=== PATIENT | male | born 1985 | race Caucasian/White ===

== ENCOUNTER 2017-04-14 00:21 | Inpatient (IN) ==
[2017-04-14] MEDS ORDERED: 0.9 % Sodium Chloride 1,000 ML IVC ONE (00:47)
[2017-04-14] MEDS ORDERED: Dexamethasone 4 MG/ML VIAL IVP ONE (00:47)
--- NOTE | 2017-04-14 00:55 | Emergency Department Note ---
Disposition Clinical Impression: Peritonsillar abscess Disposition: Admitted As Inpatient Condition: Good Time of Disposition: 03:31 General Adult HPI - General Chief complaint: ED Dental/Oral Stated complaint: Throat swelling, post abscess drained at [facility] Time Seen by Provider: 04/14/17 00:37 Source: patient, family Limitations: no limitations Nursing Notes Reviewed: Yes Vital Signs Reviewed: Yes - History of Present Illness HPI Narrative: Mr. Francisco, a 31-year-old male, presents for evaluation of throat swelling and painful swallowing. This started Wednesday. He was seen and evaluated at [facility] emergency department Wednesday prescribed outpatient clindamycin. He was unable to elicit his symptoms progressed. He returned to [facility] Wednesday evening where he was admitted overnight and discharged Wednesday after left tonsillar abscess drainage. Initially, his symptoms were minimal however they have been progressive over the last several hours he became concerned given his now worse voice, difficulty swallowing. He has had no fevers or chills. No decrease in appetite. No nausea or vomiting. No neck pain or trismus. He has been compliant with his outpatient clindamycin. PMH: none Pain Scale: 10 - Related Data Home Medications Medication Instructions Recorded Confirmed No Known Home Drugs 04/14/17 04/14/17 Allergies Allergy/AdvReac Type Severity Reaction Status Date / Time No Known Allergies Allergy Verified 04/14/17 00:26 All systems ED: reviewed and negative except as stated. Past Medical History - Past Medical History Medical history: Reports: asthma Surgical history: Reports: other Psychiatric history: Reports: anxiety, depression - Social History Smoking Status: Current every day smoker Smokeless Tobacco Status: No Alcohol use: Reports: rarely Drug use: Reports: none Physical Exam Vital Signs Reviewed General: Patient is alert, oriented, and in no acute distress. He is speaking with a mildly hoarse voice. HEENT: No facial asymmetry. Head is normocephalic and atraumatic. Oral mucosa moist. Posterior pharynx without erythema. Left tonsillar pillar is swollen and erythematous with uvular deviation to the right. Cardiovascular: Heart regular rate and rhythm without clicks, rubs, gallops, or murmurs. No JVD. PMI nondisplaced. Respiratory: Symmetric chest rise with good respiratory effort. Bilateral breath sounds are clear without wheezing, crackles, or rhonchi. Abdomen: Bowel sounds present normoactive x-4 quadrants. Abdomen is soft, nondistended, and nontender. No organomegaly noted. Psych: Patient's affect is appropriate for situation. - General Limitations: no limitations General appearance: alert Course Course Narrative: Patient is handling secretions and oxygen well room air. He does note however that if he tilts his head backwards he feels like he is choking. As long as he does not lay supine. Stable and in control of his airway. CT neck soft tissue shows a large peritonsillar abscess measuring 4.3 x 2.5 x 2.1 cm. Radiology notes no significant airway obstruction. Patient remains febrile with stable vital signs. Lab work is unremarkable. I initially gave him empiric Rocephin as an alternative to clindamycin as well as Decadron 10 mg. Spoke with on-call ENT, Dr. Newell, who requests the following: Decadron 20 mg IV every 8 hours Clindamycin or Unasyn. Because patient was previously on clindamycin with return of his abscess, will go with Unasyn 3 g IV 4 times a day. Spoke with the admitting hospitalist, Celena Castro who agrees to accept the patient. We discussed the patient's clinical history, clinical picture, and Dr. Newell's recommendations and he has no additional questions or concerns this time. I updated the patient and his mother at bedside. They were thankful and have no additional questions or concerns this time. Vital Signs Temperature 98 F 04/14/17 00:22 Pulse Rate 84 04/14/17 00:22 Respiratory Rate 16 04/14/17 00:22 Blood Pressure 149/83 04/14/17 00:22 O2 Sat by Pulse Oximetry 97 04/14/17 00:22 Temperature 98 F 04/14/17 00:22 Pulse Rate 84 04/14/17 03:39 Respiratory Rate 16 04/14/17 03:58 Blood Pressure 147/93 04/14/17 03:58 O2 Sat by Pulse Oximetry 98 04/14/17 03:39 Oxygen Delivery Oxygen Delivery Room Air Attestation Statement - Attestation Attestation: I, Gennaro Resendez MD, personally evaluated this patient and discussed their management with the resident physician. I reviewed the resident's note and agree with the documented findings, medical decision making, and plan of care. 31-year-old male presents to the emergency department with complaint of left peritonsillar abscess. He states that his throat started getting sore last Wednesday. He was seen at [facility] on Wednesday and had a negative strep test. He returned on Wednesday because of worsening conditions and was found to have a peritonsillar abscess. He was admitted to the hospital Wednesday evening. The peritonsillar abscess was drained early Wednesday and then he was discharged later Wednesday. Patient is on clindamycin. He presents to the emergency department tonight because of increasing pain and swelling in the left side of his throat with increasing hoarseness. No difficulty breathing. No definite fever. On examination patient is a well-developed well-nourished well-appearing male in no acute distress. He is alert and oriented 3. There is no cyanosis or diaphoresis. On examination patient has some ecchymosis and erythema of the left tonsillar area with moderate asymmetric swelling on the left and mild deviation of the uvula. Neck is supple with no lymphadenopathy. Breath sounds are clear and equal bilaterally. Heart regular rate and rhythm. Abdomen soft and nontender with normal bowel sounds. CT obtained and shows left peritonsillar abscess. No significant airway compromise. Dr. Forde discussed the case with ENT, Dr. Liu, and she recommended admission by the hospitalist. The hospitalist, Dr. Dallas, was consulted and accepted the admission of the patient.
[2017-04-14] MEDS ORDERED: Dexamethasone 4 MG/ML VIAL IVP STA (03:24)
[2017-04-14] MEDS ORDERED: Ampicillin/Sulbactam 3,000 MG in 0.9 % Sodium Chloride Mini Bag 100 ML IVPB ONE (03:25)
[2017-04-14] MEDS ORDERED: *HR* Morphine 2 MG/ML SYRINGE IVP ONE (03:42)
[2017-04-14] MEDS ORDERED: Naloxone 0.4 MG/ML INJ IVP PRN (04:03)
[2017-04-14] MEDS ORDERED: Acetaminophen 325 MG TABLET PO PRN (04:03)
[2017-04-14] MEDS ORDERED: Ketorolac 15 MG/ML VIAL IVP PRN (04:03)
[2017-04-14] MEDS ORDERED: *HR* Morphine 2 MG/ML SYRINGE IVP PRN ×2 (04:05→10:35)
[2017-04-14] MEDS ORDERED: 0.9 % Sodium Chloride 1,000 ML IVC SCH (04:15)
--- NOTE | 2017-04-14 04:17 | Internal Med History&Physical ---
Date of Encounter: 04/14/17 Time of Encounter: 03:30 Assessment and Plan (1) Peritonsillar abscess Current visit: Yes Status: Acute - As seen on CT in ED showing Large left peritonsillar abscess measuring 4.3 x 2.5 x 2.1 cm without significant airway compromise - Drained on 04/13 morning at [place] per patient. Has received IV clindamycin without relief. - Afebrile, labs pending. - Start Vanc, zosyn. Decadron 10 mg q8 hours. NPO diet. Pain control - ENT consulted in ED, will see in AM. (2) DVT prophylaxis Current visit: Yes Status: Acute SCDs. Anticoagulation held for possible ENT intervention tomorrow morning. Internal Medicine - H&P: HPI Chief complaint: tooth pain Admitted From: Emergency Dept Plans for Post Hospital Care: Home History of present illness: Mr. Francisco is a 31 year old male who presents with a complaint of tooth pain for the past 5 days. No significant PMHx. He states that he woke Wednesday morning with sudden onset, aching, throbbing pain that is located in his left lower jaw with some radiation to neck and ear. He presented to [facility] on Wednesday evening where he was diagnosed with peritonsillar abscess and given clindamycin. He was unable to fill the prescription before his pain worsened significantly and he presented again to [place]. He was admitted, given IV clindamycin, and had the abscess drained with relief of symptoms. He was sent home with a prescription of PO clindamycin which he has been compliant. He states that he now is again experiencing the same pain and in addition is having difficulty swallowing. He has a hard time initiating swallow motion and experiences pain with it. He denies any fevers, chills, nausea, vomiting, chest pain. He does admit to some mild difficulty breathing when lying supine however he has no complaints when head of bed is raised. In the ED, he received IV fluids, unasyn, rocephin, 4mg morphine, and a total of 20 mg of decadron with relief of symptoms. Head and neck CT showed Large left peritonsillar abscess measuring 4.3 x 2.5 x 2.1 cm without significant airway compromise is identified. ENT was called in ED and agreed to see pt tomorrow morning. Past Med Surg Social Fam HX - Past Medical History Medical history: asthma Psychiatric history: anxiety, depression - Past Surgical History Surgical History: other - Social History Smoking Status: Current every day smoker Smokeless Tobacco Status: No Alcohol use: rarely Drug use: none Occupational status: previously employed Internal Medicine - H&P: Meds No Known Home Drugs 04/14/17 [History] 3 Allergy/AdvReac Type Severity Reaction Status Date / Time No Known Allergies Allergy Verified 04/14/17 00:26 All Systems PM: A 10-system review of systems was performed and is negative for pertinent findings except as documented above in the HPI. - Constitutional Constitutional: fatigue, no chills, no fever(s) - EENT Ears: ear pain Nose, mouth and throat: dental pain, dysphagia, mouth pain, odynophagia, no facial pain, no sore throat - Cardiovascular Cardiovascular ROS IM: no chest pain - Respiratory Respiratory: no cough, no dyspnea, no hemoptysis - Gastrointestinal Gastrointestinal: no abdominal pain, no nausea, no vomiting - Genitourinary Genitourinary ROS male: no difficulty urinating, no dysuria - Neurological Neurological ROS: no numbness, no tingling - Constitutional Vitals: Temp Pulse Resp BP Pulse Ox 98 F 84 16 147/93 98 04/14/17 00:22 04/14/17 03:39 04/14/17 03:58 04/14/17 03:58 04/14/17 03:39 General appearance: Present: cooperative, A&O X 3, no acute distress, answers questions appropriately - Head Head exam: Present: atraumatic, normocephalic - ENT ENT exam: Present: mucous membranes moist, normal external ear exam - Expanded ENT Exam Mouth exam: Present: moist, tongue normal Teeth exam: Present: gingival enlargement. Absent: dental caries, fractured tooth # - Neck Neck exam general surgery: Present: tenderness (anterior palpation of submandibular region on left), supple. Absent: lymphadenopathy - Respiratory Respiratory exam: Present: CTAB. Absent: rales, rhonchi, wheezes - Cardiovascular Cardiovascular exam: Present: RRR, +S1, +S2 - GI/Abdominal GI/Abdominal exam: Present: normal bowel sounds, soft. Absent: tenderness - Psychiatric Psychiatric exam: Present: normal affect, normal mood
--- NOTE | 2017-04-14 04:31 | Event Note ---
Date of Encounter: 04/14/17 Time of Encounter: 04:31 Patient seen and examined with medical office technologist. Agree with this assessment and plan
[2017-04-14] MEDS ORDERED: Vancomycin 1,250 MG in D5% in Water 250 ML IVPB SCH (05:00)
[2017-04-14] MEDS ORDERED: Vancomycin 1,500 MG in D5% in Water 250 ML IVPB ONE (05:00)
[2017-04-14 05:38] LABS: Basophils % 0.1 %; Eosinophils % 0.1 %; Hematocrit 40.1 % (37.5-50.1); Hemoglobin 13.7 g/dL (12.9-16.9); Immature Granulocytes % 0.5 % (0-4); Lymphocytes # 1.2 K/mcL (0.6-4.6); Lymphocytes % 8.5 %; Mean Corpuscular HGB Conc 34.2 g/dL (31.6-35.5); Mean Platelet Volume 8.9 fL (9.4-12.4); Monocytes # 0.5 K/mcL (0.0-1.3); Monocytes % 3.6 %; Neutrophils # 11.8 K/mcL (1.6-8.9); Platelet Count 286 K/mcL (140-400); Red Blood Count 4.72 M/mcL (4.19-5.50); Segmented Neutrophils % 87.2 %
[2017-04-14 05:59] LABS: BUN/Creatinine Ratio 18 (6-26); Blood Urea Nitrogen 13 mg/dL (8-26); C-Reactive Protein 49 mg/L (Less than 5); Calcium 8.9 mg/dL (8.6-10.8); Carbon Dioxide 23 mEq/L (19-29); Chloride 109 mEq/L (98-109); Glucose 126 mg/dL (70-99); Osmolality,Calculated 288 (280-300); Potassium 4.8 mEq/L (3.5-4.5); Sodium 138 mEq/L (136-145); eGFR For African Americans > 60 (> 60); eGFR For Non-African Americans > 60 (> 60)
[2017-04-14] MEDS: Piperacillin/Tazobactam 3.375 GM in D5% in Water (Mini-Bag+) 100 ML IVPB SCH ×2 (08:03→16:46)
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
--- NOTE | 2017-04-14 08:19 | ENT - Consult Note ---
Date of Encounter: 04/14/17 Time of Encounter: 08:17 Assessment and Plan (1) Airway compromise Current Visit: Yes Status: Acute Patient with narrowing of the airway secondary to recurrent peritonsillar abscess with abscess measuring over [address] scan. Patient with previous I&D 2 days ago and failed to improve on outpatient clindamycin. (2) Peritonsillar abscess Current Visit: Yes Status: Acute Patient was recurrent peritonsillar abscess. Will plan to take patient to the operating room later this morning for incision and drainage and possible tonsillectomy. Risks, benefits, alternatives of this procedure were discussed with the patient at the bedside. Risks include but not limited to dysphagia bleeding both early and late, injury to the teeth or gums, jaw or tongue pain, dehydration, possible need for further surgery. Patient understands these risks and has agreed to proceed with the surgery as outlined. OR was contacted and patient was placed on the schedule for later this AM. History of Present Illness Consult date: 04/14/17 Reason for ENT Consult: airway complication, peritonsillar abscess History of present illness: Patient is a 31-year-old male that presented to emergency room early this morning with increased throat pain. Patient with a history of recent peritonsillar abscess that was drained at another [facility] 2 days ago. Patient was placed on clindamycin by mouth on discharge after abscess was drained. Patient continued to get worse even though he took this antibiotic as prescribed and presented to the emergency department for evaluation. CT scan was obtained which showed a repeat formation of the peritonsillar abscess on the left. Patient last ate last night prior to coming to the emergency department. Patient is tolerating his secretions but is starting to have difficulty swallowing. Patient with no current shortness of breath. Past Med Surg Social Fam HX - Past Medical History Medical history: asthma Psychiatric history: anxiety, depression - Past Surgical History Surgical History: other - Social History Smoking Status: Current every day smoker Packs per day: 1/2 Smokeless Tobacco Status: No Alcohol use: none Drug use: none Medications and Allergies Clindamycin HCl 300 mg PO 04/14/17 [History] Ibuprofen [Ibuprofen] 800 mg PO Q8H PRN 04/14/17 [History] 3 Allergy/AdvReac Type Severity Reaction Status Date / Time No Known Allergies Allergy Verified 04/14/17 00:26 ENT - ROS - Constitutional Constitutional ROS: as per HPI - EENT Nose, mouth and throat: halitosis, sore throat, throat swelling - Cardiovascular Cardiovascular ROS IM: no chest pain - Respiratory no wheezing, no stridor ENT Exam Initial Vital Signs Temp Pulse Resp BP Pulse Ox 98 F 84 16 149/83 97 04/14/17 00:22 04/14/17 00:22 04/14/17 00:22 04/14/17 00:22 04/14/17 00:22 - General physical appearance well developed, well nourished, moderate distress, severe pain - Eyes PERRL, normal ocular movement - ENT normal pinna, mucosal exudate, Other (Hypertrophied tonsils with asymmetry, left tonsil 4+ right tonsil 2+ with exudate. Previous I&D site visualized at the superior pole of the left tonsil with ecchymotic soft palate at the superior pole of the tonsil., Teeth appearing good repair uvula is deviated to the right tongue is mobile and midline) - Neck no masses, trachea midline - Respiratory normal respiratory effort Exam Initial Vital Signs Temp Pulse Resp BP Pulse Ox 98 F 84 16 149/83 97 04/14/17 00:22 04/14/17 00:22 04/14/17 00:22 04/14/17 00:22 04/14/17 00:22 Results - Labs 04/14/17 05:18 04/14/17 05:18 Abnormal lab results WBC 13.5 K/mcL (4.3-11.1) H 04/14/17 05:18 MPV 8.9 fL (9.4-12.4) L 04/14/17 05:18 Neutrophils # 11.8 K/mcL (1.6-8.9) H 04/14/17 05:18 Immature Plt Fraction 1.0 % (1.1-6.1) L 04/14/17 05:18 Potassium 4.8 mEq/L (3.5-4.5) H 04/14/17 05:18 Creatinine 0.71 mg/dL (0.72-1.25) L 04/14/17 05:18 Glucose 126 mg/dL (70-99) H 04/14/17 05:18 C-Reactive Protein 49 mg/L (Less than 5) H 04/14/17 05:18 Diabetes panel 04/14/17 Range/Units 05:18 Sodium 138 (136-145) mEq/L Potassium 4.8 H (3.5-4.5) mEq/L Chloride 109 (98-109) mEq/L Carbon Dioxide 23 (19-29) mEq/L BUN 13 (8-26) mg/dL Creatinine 0.71 L (0.72-1.25) mg/dL Glucose 126 H (70-99) mg/dL Calcium 8.9 (8.6-10.8) mg/dL Calcium panel 04/14/17 Range/Units 05:18 Calcium 8.9 (8.6-10.8) mg/dL Pituitary panel 04/14/17 Range/Units 05:18 Sodium 138 (136-145) mEq/L Potassium 4.8 H (3.5-4.5) mEq/L Chloride 109 (98-109) mEq/L Carbon Dioxide 23 (19-29) mEq/L BUN 13 (8-26) mg/dL Creatinine 0.71 L (0.72-1.25) mg/dL Glucose 126 H (70-99) mg/dL Calcium 8.9 (8.6-10.8) mg/dL Adrenal panel 04/14/17 Range/Units 05:18 Sodium 138 (136-145) mEq/L Potassium 4.8 H (3.5-4.5) mEq/L Chloride 109 (98-109) mEq/L Carbon Dioxide 23 (19-29) mEq/L BUN 13 (8-26) mg/dL Creatinine 0.71 L (0.72-1.25) mg/dL Glucose 126 H (70-99) mg/dL Calcium 8.9 (8.6-10.8) mg/dL All other labs normal. Consult Discharge Plan - Plan Referrals: NONE,PCP [Primary Care Provider] -
[2017-04-14] MEDS ORDERED: Ondansetron 4 MG/2 ML VIAL ONE (10:30)
[2017-04-14] MEDS ORDERED: Dexamethasone 4 MG/ML VIAL ONE (10:30)
[2017-04-14] MEDS ORDERED: Lidocaine -MPF 2% 2 ML VIAL ONE (10:32)
[2017-04-14] MEDS ORDERED: *HR* Midazolam HCl 5 MG/5 ML VIAL IVP ONE (10:32)
[2017-04-14] MEDS ORDERED: *HR* Propofol 200 MG/20 ML VIAL IVP ONE (10:32)
[2017-04-14] MEDS ORDERED: Lidocaine -MPF 4% 5 ML AMPUL ONE (10:32)
[2017-04-14] MEDS ORDERED: *HR* FentaNYL (PF) 100 MCG/2 ML VIAL ONE ×2 (10:32)
[2017-04-14] MEDS ORDERED: *HR* HYDROmorphone (PF) 1 MG/ML SYRINGE IVP PRN (10:35)
[2017-04-14] MEDS ORDERED: Ondansetron 4 MG/2 ML VIAL IVP ONE (10:35)
[2017-04-14] MEDS ORDERED: *HR* Promethazine 25 MG/ML VIAL IVP PRN (10:35)
--- NOTE | 2017-04-14 10:43 | Operative Note ---
Date of procedure: 04/14/17 Procedure: Preoperative diagnosis: Left peritonsillar abscess Postoperative diagnosis: Same Procedure: Incision and drainage of left peritonsillar abscess Surgeon: Tianna Cruz Route Aide: N/A Anesthesia: Gen. endotracheal tube anesthesia Indications: Patient is a 31-year-old male that presented to the emergency department secondary to a recurrent peritonsillar abscess on the left side. Patient with a history of recent strep infection and he had developed an abscess on the left side that was drained 2 days prior at another [facility]. Patient was discharged on clindamycin and took the medication as prescribed but failed to improve. Pain worsened significantly in the 24 hours prior to arrival to the ED. Patient had a CT scan in the emergency department which showed a re-collection of peritonsillar abscess on the left measuring 4.3 x 2.5 x 2.1 cm. Consent:Risks benefits alternatives to tonsillectomy was discussed in detail with the patient. Risks discussed in detail including bleeding, infection, dysphagia, pain, possible need for further further surgery. Risks were understood and agreement was made to proceed with the surgery as outlined. Consent was obtained in writing. Findings: Large peritonsillar abscess on the left with fluctuance in the left superior pole of the tonsil with copious amounts of purulent drainage upon incision Blood loss: 20 mL Fluids: 0.9 normal saline Specimen: Aerobic and anaerobic cultures left peritonsillar abscess Complications: None apparent Description of procedure in detail: Patient was identified in the Pre-operative area by name and date of , consent was reviewed, and 24-hour uptake completed. Patient was brought back to the OR by the anesthesia team and placed supine on the operating room table. Patient was placed under general anesthesia and intubated using an endotracheal tube and eyes were taped. The ET tube was secured in a midline and inferior position. The bed was then rotated, a shoulder roll was placed, and the head was draped. The Caprice-Jai was then placed within the mouth retracting the tongue and ET tube inferiorly to obtain good exposure of the oropharynx and the retractor was then suspended from the chandler stand. The palate was palpated and uvula inspected and fluctuance was palpated at the left superior pole of the tonsil. Planned incision was then this area. 11 blade was then used to make a stab incision in this area. Purulence was immediately obtained. Aerobic and anaerobic cultures were taken of the purulence. Hemostat was then used to open the pocket and suction was used to help remove purulent drainage from the abscess pocket. Once pocket was completely emptied mouth was irrigated multiple times with saline. Suction cautery was used at the incision site to help cauterize and stop bleeding at the site. Airway was again irrigated and suctioned. Patient was deemed hemostatic. The Caprice-Jai retractor was removed at this time. The mouth was cleaned of debris and wiped clean. The patient was then turned over to Anesthesia in good condition.
--- NOTE | 2017-04-14 10:45 | Discharge Summary ---
Outpatient Proc Discharge Plan - Plan Additional Instructions: TONSIL SURGERY HOME CARE INSTRUCTIONS General: After tonsillectomy, you may feel tired or fatigued. Due to a lack of food or the use of pain medication, there may be constipation for several days. Physical Activities: After this surgery, you should rest at home for the first 48 hours. Activity may gradually be increased over the next 5 to 10 days. Strenuous physical activity following surgery is discouraged for two weeks. Absolutely no strenous physical activities or heavy lifting for 10 days. Diet: The more you drinks, the sooner the pain will subside. Water, fruits juice, popsicles, Jell-O, Pedialyte, and Gatorade are excellent sources of liquid. Soft foods such as ice cream, sherbet, yogurt, pudding, apple sauce and easily chewed foods should also be encouraged.. Avoid hot or spicy foods, and foods that are hard and crunchy. Often, chewing gum or gummy bears speeds comfortable eating by reducing the spasm after surgery and can be started any time after surgery. Pain: For the first several days (occasionally up to 2 weeks) following surgery , pain in the throat is to be expected. This can usually be controlled with Tylenol or prescribed pain medicine for two weeks. Pain is often worse at night and may prompt the need for additional pain medication and sleeping propped up can help. Expect pain in the ears after surgery as the same nerve that goes to the tonsil also goes to the ear and you may perceive the pain of tonsillectomy healing as coming from the ear. If a Narcotic is prescribed (Manitou/Roxicet/ Hydrocodone) do not use together with Acetaminophen (Tylenol) as the prescribed medication likely contains this medicine already. If break through pain occurs , Motrin/Ibuprofen/Advil in addition to the narcotic may be used. An ice collar can also be helpful for sore throat after surgery. Make this by placing ice cubes and water in a large Zip-Loc bag and wrapping it in a towel. Gently lay the ice pack on the front of the neck. Use numbing sore throat lozenges as needed for pain like Cepacol or Chloraseptic lozenges. Bleeding: Post-operative bleeding is unusual, but it can occur up to two weeks after surgery. Avoiding heavy exercise will decrease, but not eliminate this risk. Most bleeding is minor and you may only some blood streaked in mucous or saliva. If this happens have the child drink icy slushy liquids and/or gargle with ice chips mixed with water. If this does not stop the bleeding after 30 minutes, call our office to receive further instructions. If there is heavy bleeding begin swishing icy slushy liquids in the mouth or gargle with ice chips and immediately call our office.ng have child begin drinking icy slushy liquids or gargle with ice chips and immediately call our office. Home Medications: HYDROcodone/Acet 5/325 mg [Manitou 5-325 mg] 1 tab PO Q4-6H PRN #10 tab 04/14/17 [ Rx]
[2017-04-14] MEDS ORDERED: Dexamethasone 10 MG/ML VIAL IVP SCH ×2 (11:00)
--- NOTE | 2017-04-14 11:30 | Anesthesia Evaluation Post Op ---
Date of Encounter: 04/14/17 Time of Encounter: 11:29 - Vital Signs Vital Signs: Selected Entries 04/14/17 11:18 04/14/17 11:25 Temperature 98.1 F Pulse Rate 70 Respiratory Rate 16 Blood Pressure 125/77 O2 Sat by Pulse Oximetry 96 - Lungs Lungs: Clear Ascult./Percussion - Airway Airway: Non-obstructed - Cardiovascular Regular Rate - Mental Status Mental Status: Alert & Oriented, Answers Appropriately - Pain Pain Scale: 0 Pain Scale used: Numeric (1 - 10) - Nausea Vomiting Nausea Vomiting: Not Present - Hydration Hydration: NPO, Has not voided - Discharge PostOp Status: Discharge Patient to home
[2017-04-14 15:36] VITALS: BP 123/62
--- NOTE | 2017-04-14 17:27 | Discharge Summary ---
Date of Encounter: 04/14/17 Time of Encounter: 14:30 - Discharge Diagnosis (1) Peritonsillar abscess Priority: Primary Status: Acute Comments: Patient was recurrent peritonsillar abscess. About 5 days ago, patient awakened with sudden onset aching, throbbing pain located in left lower jaw with some radiation to neck and ear. Patient was visiting people in [place] and presented to [facility] 2 nights later where he was diagnosed with a peritonsillar abscess. He was given clindamycin Before he was able to get the prescription filled, his pain increased significantly and he went back to [facility]. He was admitted, given IV clindamycin, had I&D of peritonsillar abscess with relief of symptoms. He was sent home with a prescription to by mouth clindamycin, which he took as directed. Patient presented to the emergency room again overnight the same complaint. This visit he reported difficulty swallowing. He reported 9/10 pain with swallowing. He denies fever, chills, nausea, vomiting, chest pain. He did report some dyspnea when lying supine, however when he was at least in a semi-Ball's position he was fine. He does complain of fatigue, malaise, and body aches. in the emergency department this visit, he received IV fluids, Unasyn, Rocephin , pain medication, as well as IV steroid and had relief of symptoms. Patient had a head and neck CT showing peritonsillar abscess measuring 4.3 x 2.5 x 2.1 cm without significant airway compromise. ENT was called and he was taken to surgery for another I&D. Surgical showed large peritonsillar abscess on the left with fluctuance in the left superior pole of the tonsil with copious amounts of purulent drainage upon incision. Cultures, both aerobic and anaerobic were taken and are pending. Patient will be sent home with Bactrim and will follow up with Dr. Newell within the next week. Patient's vital signs are stable, he is afebrile, he has no airway compromise, he is able to eat and drink without difficulty, patient states he is ready to go home. I assessed vital signs myself during assessment. Blood pressure 116/73, pulse 83, respirations 16, pulse ox 96%, temperature 98.5 orally. ENT provider has given a patient prescription for pain control. Pt will be sent home with rx for Bactrim, pending culture results. (2) DVT prophylaxis Priority: Secondary Status: Acute Comments: Pt has been ambulatory. (3) Airway compromise Priority: Secondary Status: Resolved - Discharge Medications Prescriptions: HYDROcodone/Acet 5/325 mg [Bowlus 5-325 mg] 1 tab PO Q4-6H PRN #10 tab PRN Reason: Pain Sulfamethoxazole/Trimeth DS [Bactrim DS] 1 each PO BID #14 tablet Home Medications: HYDROcodone/Acet 5/325 mg [Bowlus 5-325 mg] 1 tab PO Q4-6H PRN #10 tab 04/14/17 [ Rx] Sulfamethoxazole/Trimeth DS [Bactrim DS] 1 each PO BID #14 tablet 04/14/17 [Rx] Allergies/Adverse Reactions: 3 Allergy/AdvReac Type Severity Reaction Status Date / Time No Known Allergies Allergy Verified 04/14/17 00:26 Date of admission: 04/14/17 04:31 Primary care physician: PCP NONE Discharging clinician: Justina Collado Anticipated date of discharge: 04/14/17 - Patient Status Disposition: Home, Self-Care Functional capacity at discharge: independent ambulation Overall status at discharge: patient is progressing back to baseline - Discharge Instructions Follow Up With: NONE,PCP [Primary Care Provider] - Additional Instructions: TONSIL SURGERY HOME CARE INSTRUCTIONS General: After tonsillectomy, you may feel tired or fatigued. Due to a lack of food or the use of pain medication, there may be constipation for several days. Physical Activities: After this surgery, you should rest at home for the first 48 hours. Activity may gradually be increased over the next 5 to 10 days. Strenuous physical activity following surgery is discouraged for two weeks. Absolutely no strenous physical activities or heavy lifting for 10 days. Diet: The more you drinks, the sooner the pain will subside. Water, fruits juice, popsicles, Jell-O, Pedialyte, and Gatorade are excellent sources of liquid. Soft foods such as ice cream, sherbet, yogurt, pudding, apple sauce and easily chewed foods should also be encouraged.. Avoid hot or spicy foods, and foods that are hard and crunchy. Often, chewing gum or gummy bears speeds comfortable eating by reducing the spasm after surgery and can be started any time after surgery. Pain: For the first several days (occasionally up to 2 weeks) following surgery , pain in the throat is to be expected. This can usually be controlled with Tylenol or prescribed pain medicine for two weeks. Pain is often worse at night and may prompt the need for additional pain medication and sleeping propped up can help. Expect pain in the ears after surgery as the same nerve that goes to the tonsil also goes to the ear and you may perceive the pain of tonsillectomy healing as coming from the ear. If a Narcotic is prescribed (Bowlus/Roxicet/ Hydrocodone) do not use together with Acetaminophen (Tylenol) as the prescribed medication likely contains this medicine already. If break through pain occurs , Motrin/Ibuprofen/Advil in addition to the narcotic may be used. An ice collar can also be helpful for sore throat after surgery. Make this by placing ice cubes and water in a large Zip-Loc bag and wrapping it in a towel. Gently lay the ice pack on the front of the neck. Use numbing sore throat lozenges as needed for pain like Cepacol or Chloraseptic lozenges. Bleeding: Post-operative bleeding is unusual, but it can occur up to two weeks after surgery. Avoiding heavy exercise will decrease, but not eliminate this risk. Most bleeding is minor and you may only some blood streaked in mucous or saliva. If this happens have the child drink icy slushy liquids and/or gargle with ice chips mixed with water. If this does not stop the bleeding after 30 minutes, call our office to receive further instructions. If there is heavy bleeding begin swishing icy slushy liquids in the mouth or gargle with ice chips and immediately call our office.ng have child begin drinking icy slushy liquids or gargle with ice chips and immediately call our office. Bactrim called in to pharmacy. Return to ER as needed for any other problems or concernsl We will watch for the culture to return and notify you if you need a change in your antibiotic. - Diet and Activity Activity: increase activity as tolerated Diet: advance to your usual diet Hospital course: Please see assessment and plan for hospital course. - Time Spent with Patient Total time spent providing and/or coordinating discharge services: Less than 30 minutes - Constitutional Vitals: Temp Pulse Resp BP Pulse Ox 97.9 F 83 16 123/62 96 10/25/17 15:35 04/14/17 15:35 04/14/17 15:35 04/14/17 15:35 04/14/17 15:35 General appearance: Present: cooperative, A&O X 3, pleasant, no acute distress, answers questions appropriately - Head Head exam: Present: atraumatic, normal inspection, normocephalic - Eye Eye exam: Present: normal appearance, conjuntiva pink, sclera anicteric - Neck Neck exam general surgery: Present: supple, trachea midline. Absent: lymphadenopathy, tenderness - Respiratory Respiratory exam: Present: CTAB. Absent: accessory muscle use, rales, respiratory distress, rhonchi, wheezes - Cardiovascular Cardiovascular exam: Present: RRR, +S1, +S2. Absent: diastolic murmur, gallop, rubs, systolic murmur - GI/Abdominal GI/Abdominal exam: Present: normal bowel sounds, soft. Absent: diminished bowel sounds, distended, hepatomegaly, tenderness - Extremities Exam Extremities exam: Present: normal capillary refill, normal inspection, warm, radial pulses palpable and symmetrical. Absent: calf tenderness, cyanotic, pedal edema, tenderness - Neurological Exam Neurological exam: Present: alert, oriented X3, no focal deficits. Absent: facial droop, speech deficit - Skin Skin exam: Present: dry, intact, normal color, warm. Absent: rash
[2017-04-14] MEDS ORDERED: Vancomycin 1,500 MG in D5% in Water 250 ML IVPB SCH (18:00)
[2017-04-14] MEDS ORDERED: Aminoglycoside Consult 1 EACH MC ONE (18:02)
== END 2017-04-14 18:03 | disposition home or self-care (01) | DRG 113 ==
LOC: 3BNU 00:21 → EMEROO 00:21 → 3BNU 03:54
PROVIDERS: ADMIT Internal Medicine; ATTEND Registered Nurse

== ENCOUNTER 2019-05-02 21:14 | Inpatient (IN) ==
[2019-05-02] MEDS ORDERED: Prochlorperazine 10 MG/2 ML VIAL IVP STA (22:00)
[2019-05-02] MEDS ORDERED: Ketorolac 15 MG/ML VIAL IVP ONE (22:00)
[2019-05-02 22:54] LABS: Basophils % 0.4 %; Eosinophils # 0.1 K/mcL (0.0-0.6); Eosinophils % 1.8 %; Hematocrit 37.9 % (37.5-50.1); Hemoglobin 13.6 g/dL (12.9-16.9); Immature Granulocytes % 0.1 % (0-4); Lymphocytes # 1.2 K/mcL (0.6-4.6); Lymphocytes % 15.9 %; Mean Corpuscular HGB Conc 35.9 g/dL (31.6-35.5); Mean Corpuscular Volume 89.2 fL (83.0-100.0); Mean Platelet Volume 9.1 fL (9.4-12.4); Monocytes # 0.8 K/mcL (0.0-1.3); Monocytes % 10.7 %; Neutrophils # 5.3 K/mcL (1.6-8.9); Platelet Count 209 K/mcL (140-400); Red Blood Count 4.25 M/mcL (4.19-5.50); Red Cell Distribution Width 12.7 % (11.5-14.5); Segmented Neutrophils % 71.1 %; White Blood Count 7.4 K/mcL (4.3-11.1)
[2019-05-02 23:09] LABS: Bilirubin,Urine Negative (Negative); Blood,Urine Small (Negative); Clarity,Urine Clear (Clear); Color,Urine Yellow (Yellow); Glucose,Urine (UA) Normal (Normal); Ketones,Urine Negative (Negative); Leukocyte Esterase,Urine Negative (Negative); Nitrite,Urine Negative (Negative); Protein,Urine Negative (Neg-Trace); Specific Gravity,Urine 1.008 (1.010-1.025); Urobilinogen,Urine Normal (Normal)
[2019-05-02 23:17] LABS: Albumin 3.6 g/dL (3.5-5.7); Albumin/Globulin Ratio 1.3 (1.1-2.2); Bilirubin,Direct 0.4 mg/dL (0.0-0.2); Bilirubin,Indirect 0.7 mg/dL (0.0-1.0); Bilirubin,Total 1.1 mg/dL (0.3-1.0); Calcium 9.1 mg/dL (8.6-10.3); Globulin 2.7 g/dL (2.4-3.5); Potassium 4.2 mEq/L (3.5-5.1); Total Protein 6.3 g/dL (6.4-8.9)
[2019-05-02 23:25] LABS: Bacteria,Urine Few per hpf (None-Few); Hyaline Casts,Urine None Seen per lpf (None-Few); RBC,Urine 0-3 per hpf (0-3); Squamous Epithelial Cell,Urine Few per lpf (None-Few); WBC,Urine 0-3 per hpf (0-3)
[2019-05-02] MEDS ORDERED: 0.9 % Sodium Chloride 1,000 ML IVC ONE (23:30)
[2019-05-03] MEDS ORDERED: 0.9 % Sodium Chloride 1,000 ML IVC ONE (01:10)
[2019-05-03] MEDS ORDERED: Naloxone 0.4 MG/ML INJ IVP PRN (08:25)
[2019-05-03] MEDS ORDERED: Ondansetron 4 MG/2 ML VIAL IVP PRN (08:25)
[2019-05-03 09:37] LABS: Magnesium 2.1 mg/dL (1.6-2.6)
[2019-05-03 09:43] LABS: INR 1.1
[2019-05-03 09:46] LABS: Activated Partial Thrombo Time 32.6 Seconds (26.0-36.0)
[2019-05-03] MEDS ORDERED: Ipratropium/Albuterol Neb 3 ML IH PRN (09:49)
[2019-05-03 10:09] LABS: Albumin 3.3 g/dL (3.5-5.7); Albumin/Globulin Ratio 1.4 (1.1-2.2); Bilirubin,Direct 0.4 mg/dL (0.0-0.2); Bilirubin,Indirect 0.6 mg/dL (0.0-1.0); Globulin 2.3 g/dL (2.4-3.5); Total Protein 5.6 g/dL (6.4-8.9)
[2019-05-03] MEDS: levoFLOXacin 750 MG/150 ML 750 MG/150 ML BAG IVPB SCH (13:32)
[2019-05-03] MEDS: 0.9 % Sodium Chloride 1,000 ML IVC SCH (13:33)
[2019-05-03 14:27] LABS: Rheumatoid Factor < 10 IU/mL (Less than 14)
[2019-05-03 16:56] LABS: Amphetamine Screen,Urine Negative ng/mL (Cutoff=1000); Barbiturate Screen,Urine Negative ng/mL (Cutoff=200); Benzodiazepines Screen,Urine Negative ng/mL (Cutoff=200); Cannabinoid Screen,Urine Negative ng/mL (Cutoff = 50); Cocaine Screen,Urine Negative ng/mL (Cutoff= 300); Opiate Screen,Urine Negative ng/mL (Cutoff=300); Phencyclidine Screen,Urine Negative ng/mL (Cutoff=25)
[2019-05-03 17:24] LABS: Hepatitis B Surface Antigen Nonreactive (Nonreactive)
[2019-05-03 17:55] LABS: Hepatitis A Antibody IgM Nonreactive (Nonreactive); Hepatitis B Core IgM Nonreactive (Nonreactive)
[2019-05-03] MEDS: Doxycycline 100 MG CAPSULE PO SCH (18:06)
[2019-05-03] MEDS: *HR* Heparin 5,000 UNIT/ML VIAL SQ SCH (18:06)
[2019-05-03 18:10] LABS: Adenovirus Not Detected (Not Detect); Bordetella Pertussis Not Detected (Not Detect); Chlamydophila pneumoniae Not Detected (Not Detect); Coronavirus 229E Not Detected (Not Detect); Coronavirus HKU1 Not Detected (Not Detect); Coronavirus NL63 Not Detected (Not Detect); Coronavirus OC43 Not Detected (Not Detect); Human Metapneumovirus Not Detected (Not Detect); Human Rhinovirus/Enterovirus Not Detected (Not Detect); Influenza A Subtype 2009 H1 Not Detected (Not Detect); Influenza A Untypeable Not Detected (Not Detect); Influenza B Not Detected (Not Detect); Mycoplasma pneumoniae Not Detected (Not Detect); Parainfluenza Virus 1 Not Detected (Not Detect); Parainfluenza Virus 2 Not Detected (Not Detect); Parainfluenza Virus 3 Not Detected (Not Detect); Parainfluenza Virus 4 Not Detected (Not Detect); Respiratory Syncytial Virus Not Detected (Not Detect)
[2019-05-03] MEDS: Nicotine 7 MG PATCH.TD24 TD SCH (20:35)
[2019-05-04] MEDS: 0.9 % Sodium Chloride 1,000 ML IVC SCH ×3 (03:35→21:52)
[2019-05-04 04:22] LABS: Hepatitis C Virus Antibody Reactive (Nonreactive)
[2019-05-04 05:48] LABS: Basophils % 0.5 %; Eosinophils # 0.1 K/mcL (0.0-0.6); Eosinophils % 1.8 %; Hematocrit 34.9 % (37.5-50.1); Hemoglobin 12.4 g/dL (12.9-16.9); Immature Granulocytes % 0.3 % (0-4); Lymphocytes # 1.5 K/mcL (0.6-4.6); Lymphocytes % 22.9 %; Mean Corpuscular HGB Conc 35.5 g/dL (31.6-35.5); Mean Corpuscular Hemoglobin 31.6 pg (28.0-33.3); Mean Corpuscular Volume 88.8 fL (83.0-100.0); Mean Platelet Volume 9.5 fL (9.4-12.4); Monocytes # 0.7 K/mcL (0.0-1.3); Monocytes % 10.2 %; Neutrophils # 4.3 K/mcL (1.6-8.9); Platelet Count 239 K/mcL (140-400); Red Blood Count 3.93 M/mcL (4.19-5.50); Red Cell Distribution Width 12.3 % (11.5-14.5); Segmented Neutrophils % 64.3 %; White Blood Count 6.6 K/mcL (4.3-11.1)
[2019-05-04 06:08] LABS: Albumin 3.3 g/dL (3.5-5.7); Albumin/Globulin Ratio 1.4 (1.1-2.2); Bilirubin,Total 0.8 mg/dL (0.3-1.0); Calcium 8.6 mg/dL (8.6-10.3); Chol/HDL Ratio 8.6 (0-4.9); Globulin 2.3 g/dL (2.4-3.5); Potassium 4.3 mEq/L (3.5-5.1); Total Protein 5.6 g/dL (6.4-8.9)
[2019-05-04] MEDS: Doxycycline 100 MG CAPSULE PO SCH ×2 (06:52→16:47)
[2019-05-04] MEDS: *HR* Heparin 5,000 UNIT/ML VIAL SQ SCH ×2 (06:52→16:47)
[2019-05-04] MEDS: Nicotine 7 MG PATCH.TD24 TD SCH (08:27)
[2019-05-04] MEDS ORDERED: Pantoprazole 40 MG VIAL IVP SCH (09:00)
[2019-05-04] MEDS: Acetaminophen 325 MG TABLET PO PRN ×3 (09:46→23:39)
[2019-05-04] MEDS: amLODIPine 5 MG TABLET PO SCH (12:38)
[2019-05-04 15:55] LABS: Glucose,Pleural Fluid 125 mg/dL (No Ref Range); LDH,Pleural Fluid 131 Units/L (No Ref Range); Total Protein,Pleural Fluid < 3.0 g/dL
[2019-05-04 16:37] LABS: RBC,Pleural Fluid < 0.002 M/mcL
[2019-05-04 17:38] LABS: Appearance of Pleural Fl Clear (Clear)
[2019-05-05 02:29] LABS: Basophils % 0.3 %; Eosinophils # 0.1 K/mcL (0.0-0.6); Eosinophils % 1.9 %; Hematocrit 33.5 % (37.5-50.1); Hemoglobin 11.4 g/dL (12.9-16.9); Immature Granulocytes % 0.2 % (0-4); Lymphocytes # 1.5 K/mcL (0.6-4.6); Lymphocytes % 24.8 %; Mean Corpuscular Hemoglobin 31.4 pg (28.0-33.3); Mean Corpuscular Volume 92.3 fL (83.0-100.0); Mean Platelet Volume 9.7 fL (9.4-12.4); Monocytes # 0.6 K/mcL (0.0-1.3); Monocytes % 9.7 %; Neutrophils # 3.9 K/mcL (1.6-8.9); Platelet Count 240 K/mcL (140-400); Red Blood Count 3.63 M/mcL (4.19-5.50); Red Cell Distribution Width 12.6 % (11.5-14.5); Segmented Neutrophils % 63.1 %; White Blood Count 6.2 K/mcL (4.3-11.1)
[2019-05-05 02:55] LABS: Albumin 3.3 g/dL (3.5-5.7); Albumin/Globulin Ratio 1.5 (1.1-2.2); Bilirubin,Total 0.6 mg/dL (0.3-1.0); Calcium 8.6 mg/dL (8.6-10.3); Globulin 2.2 g/dL (2.4-3.5); Total Protein 5.5 g/dL (6.4-8.9)
[2019-05-05] MEDS: *HR* Heparin 5,000 UNIT/ML VIAL SQ SCH (03:21)
[2019-05-05] MEDS: Doxycycline 100 MG CAPSULE PO SCH (05:16)
[2019-05-05] MEDS: Acetaminophen 325 MG TABLET PO PRN (05:18)
[2019-05-05] MEDS: 0.9 % Sodium Chloride 1,000 ML IVC SCH ×2 (05:53→08:43)
[2019-05-05] MEDS: amLODIPine 5 MG TABLET PO SCH (08:43)
[2019-05-05] MEDS: levoFLOXacin 750 MG/150 ML 750 MG/150 ML BAG IVPB SCH (08:44)
[2019-05-05] MEDS: Nicotine 7 MG PATCH.TD24 TD SCH (09:29)
[2019-05-05 11:09] VITALS: BP 119/86
[2019-05-05] MEDS ORDERED: FLU Vac QV 19-20 (6Month+)/PF 0.5 ML SYRINGE IM ONE (12:22)
[2019-05-06 09:03] LABS: ANA IgG by ELISA NONE DETECTED (None Detected)
[2019-05-06 09:17] LABS: HCV Quant Interpretation DETECTED (Not Detected); HCV Quant Log 4.69 log IU/mL; Serine Protease-3 Antibody 0 AU/mL (0-19)
[2019-05-08 07:41] LABS: HCV Genotype by Sequencing 1A OR 1B
== END 2019-05-05 12:54 | disposition home or self-care (01) | DRG 469 ==
LOC: 3BNU 21:14 → EMEROOARM 21:14 → 3BNU 05-03 02:46 → SUATTDRO 05-04 08:34
PROVIDERS: ADMIT Family Medicine; ATTEND Internal Medicine

== ENCOUNTER 2019-10-25 19:52 | Observation (INO) ==
[2019-10-25] MEDS ORDERED: *HR* Midazolam HCl 5 MG/ML VIAL ONE (19:55)
[2019-10-25] MEDS ORDERED: *HR* Midazolam HCl 5 MG/ML VIAL IM ONE (20:00)
[2019-10-25] MEDS ORDERED: 0.9 % Sodium Chloride 1,000 ML IVC ONE (20:01)
[2019-10-25 20:26] LABS: Basophils # 0.1 K/mcL (0.0-0.2); Basophils % 0.5 %; Eosinophils # 0.1 K/mcL (0.0-0.6); Eosinophils % 0.9 %; Hematocrit 44.8 % (37.5-50.1); Hemoglobin 14.7 g/dL (12.9-16.9); Immature Granulocytes % 0.3 % (0-4); Lymphocytes # 2.7 K/mcL (0.6-4.6); Lymphocytes % 27.2 %; Mean Corpuscular HGB Conc 32.8 g/dL (31.6-35.5); Mean Corpuscular Hemoglobin 29.7 pg (28.0-33.3); Mean Corpuscular Volume 90.5 fL (83.0-100.0); Mean Platelet Volume 8.9 fL (9.4-12.4); Monocytes # 0.8 K/mcL (0.0-1.3); Monocytes % 8.1 %; Neutrophils # 6.2 K/mcL (1.6-8.9); Platelet Count 255 K/mcL (140-400); Red Blood Count 4.95 M/mcL (4.19-5.50); Red Cell Distribution Width 12.3 % (11.5-14.5); White Blood Count 9.9 K/mcL (4.3-11.1)
[2019-10-25 20:30] LABS: INR 1.1; Prothrombin Time 12.3 Seconds (9.4-12.1)
[2019-10-25 20:33] LABS: Activated Partial Thrombo Time 30.8 Seconds (26.0-36.0)
[2019-10-25 20:49] LABS: Alanine Aminotransferase 29 Units/L (7-52); Albumin 4.5 g/dL (3.5-5.7); Albumin/Globulin Ratio 1.6 (1.1-2.2); Alkaline Phosphatase 101 Units/L (34-104); Aspartate Amino Transferase 26 Units/L (13-39); BUN/Creatinine Ratio 17 (6-26); Bilirubin,Direct 0.1 mg/dL (0.0-0.2); Bilirubin,Indirect 0.5 mg/dL (0.0-1.0); Bilirubin,Total 0.6 mg/dL (0.3-1.0); Blood Urea Nitrogen 16 mg/dL (6-20); Calcium 9.6 mg/dL (8.6-10.3); Carbon Dioxide 15 mEq/L (23-29); Chloride 100 mEq/L (98-107); Creatine Kinase 220 Units/L (30-223); Ethanol < 10 mg/dL (Less than 10); Globulin 2.8 g/dL (2.4-3.5); Glucose 182 mg/dL (70-105); Osmolality,Calculated 288 (280-300); Potassium 3.4 mEq/L (3.5-5.1); Sodium 136 mEq/L (136-145); Total Protein 7.3 g/dL (6.4-8.9); Troponin I < 0.03 ng/mL (< 0.04); eGFR For African Americans > 60 (> 60); eGFR For Non-African Americans > 60 (> 60)
[2019-10-25 21:02] LABS: Thyroid Stimulating Hormone 1.198 mcIU/mL (0.340-5.600)
[2019-10-25] MEDS ORDERED: *HR* Midazolam HCl 5 MG/ML VIAL IVP ONE (21:30)
[2019-10-25] MEDS ORDERED: levETIRAcetam 1,000 MG in 0.9 % Sodium Chloride 100 ML IVPB ONE (21:31)
[2019-10-25 22:41] LABS: Bilirubin,Urine Negative (Negative); Blood,Urine Negative (Negative); Clarity,Urine Clear (Clear); Color,Urine Yellow (Yellow); Glucose,Urine (UA) Normal (Normal); Ketones,Urine Negative (Negative); Leukocyte Esterase,Urine Negative (Negative); Nitrite,Urine Negative (Negative); PH,Urine 5.5 pH Units (5.0-8.0); Protein,Urine Trace mg/dL (Neg-Trace); Specific Gravity,Urine > 1.030 (1.010-1.025); Urobilinogen,Urine Normal (Normal)
[2019-10-25 22:51] LABS: Amphetamine Screen,Urine Positive ng/mL (Cutoff=1000); Barbiturate Screen,Urine Negative ng/mL (Cutoff=200); Benzodiazepines Screen,Urine Positive ng/mL (Cutoff=200); Cannabinoid Screen,Urine Positive ng/mL (Cutoff = 50); Cocaine Screen,Urine Negative ng/mL (Cutoff= 300); Opiate Screen,Urine Positive ng/mL (Cutoff=300); Phencyclidine Screen,Urine Negative ng/mL (Cutoff=25)
[2019-10-25] MEDS ORDERED: Ondansetron 4 MG/2 ML VIAL IVP ONE (23:04)
[2019-10-25] MEDS ORDERED: Naloxone 0.4 MG/ML INJ IVP PRN (23:17)
[2019-10-26] MEDS: *HR* LORazepam 2 MG/ML VIAL IVP PRN ×5 (00:19→21:23)
[2019-10-26] MEDS: 0.9 % Sodium Chloride 1,000 ML IVC SCH ×2 (01:29→17:52)
[2019-10-26] MEDS ORDERED: Ketorolac 15 MG/ML VIAL IVP ONE (02:50)
[2019-10-26] MEDS: *HR* Promethazine 25 MG/ML VIAL IVP PRN ×2 (03:19→11:27)
[2019-10-26 03:21] LABS: Basophils % 0.3 %; Hematocrit 39.1 % (37.5-50.1); Hematocrit 39.2 % (37.5-50.1); Hemoglobin 13.3 g/dL (12.9-16.9); Hemoglobin 13.4 g/dL (12.9-16.9); Immature Granulocytes % 0.4 % (0-4); Lymphocytes % 13.8 %; Mean Corpuscular HGB Conc 34.2 g/dL (31.6-35.5); Mean Corpuscular Hemoglobin 29.4 pg (28.0-33.3); Mean Corpuscular Hemoglobin 29.5 pg (28.0-33.3); Mean Corpuscular Volume 86.3 fL (83.0-100.0); Mean Corpuscular Volume 86.5 fL (83.0-100.0); Mean Platelet Volume 9.2 fL (9.4-12.4); Mean Platelet Volume 9.3 fL (9.4-12.4); Monocytes # 0.4 K/mcL (0.0-1.3); Monocytes % 5.5 %; Platelet Count 231 K/mcL (140-400); Platelet Count 237 K/mcL (140-400); Red Blood Count 4.52 M/mcL (4.19-5.50); Red Blood Count 4.54 M/mcL (4.19-5.50); Red Cell Distribution Width 12.2 % (11.5-14.5); White Blood Count 7.4 K/mcL (4.3-11.1); White Blood Count 7.5 K/mcL (4.3-11.1)
[2019-10-26 03:39] LABS: Alanine Aminotransferase 25 Units/L (7-52); Albumin/Globulin Ratio 1.7 (1.1-2.2); Alkaline Phosphatase 87 Units/L (34-104); Aspartate Amino Transferase 24 Units/L (13-39); BUN/Creatinine Ratio 19 (6-26); Bilirubin,Total 0.6 mg/dL (0.3-1.0); Blood Urea Nitrogen 14 mg/dL (6-20); Calcium 9.1 mg/dL (8.6-10.3); Carbon Dioxide 24 mEq/L (23-29); Chloride 104 mEq/L (98-107); Globulin 2.4 g/dL (2.4-3.5); Glucose 101 mg/dL (70-105); Osmolality,Calculated 283 (280-300); Phosphorous 2.7 mg/dL (2.7-4.5); Potassium 3.5 mEq/L (3.5-5.1); Sodium 136 mEq/L (136-145); Total Protein 6.4 g/dL (6.4-8.9); eGFR For African Americans > 60 (> 60); eGFR For Non-African Americans > 60 (> 60)
[2019-10-26] MEDS: Acetaminophen 325 MG TABLET PO PRN ×2 (06:23→11:29)
[2019-10-26] MEDS: Nicotine 21 MG PATCH.TD24 TD SCH (07:55)
[2019-10-26] MEDS: Lactulose Oral Soln 20 GM/30 ML UDC PO SCH ×2 (09:44→19:43)
[2019-10-26] MEDS ORDERED: *HR* LORazepam 2 MG/ML VIAL IVP PRN (11:55)
[2019-10-27 08:16] VITALS: BP 144/91
[2019-10-27] MEDS ORDERED: Folic Acid 1 MG TABLET PO SCH (09:00)
[2019-10-27] MEDS ORDERED: Vitamin B Complex/Vit C/Vit E 1 EACH TABLET PO SCH (09:00)
[2019-10-27] MEDS ORDERED: Thiamine (B-1) 100 MG TABLET PO SCH (09:00)
[2019-10-27] MEDS: Nicotine 21 MG PATCH.TD24 TD SCH (09:39)
[2019-10-27] MEDS: Lactulose Oral Soln 20 GM/30 ML UDC PO SCH (09:39)
== END 2019-10-27 11:01 | disposition home or self-care (01) ==
LOC: 3BNU 19:52 → EMEROOARM 19:52 → SUATTDRO 21:53 → 3BNU 22:32
PROVIDERS: ADMIT Internal Medicine; ATTEND Internal Medicine